=== PATIENT | female | born 1995 | race Caucasian/White ===

== ENCOUNTER 2021-06-07 13:36 | Outpatient (REF) | payer OTHER, SELFPAY ==
[2021-06-07 14:30] LABS: Influenza A PCR NEGATIVE (Negative); Influenza B PCR NEGATIVE (Negative); Resp Syncy Virus RNA Qual PCR NEGATIVE (Negative); SARS COV2 PCR INHOUSE POSITIVE (Negative)
== END 2021-06-07 13:37 | disposition home or self-care (01) ==
LOC: HO.LNP 13:36
PROVIDERS: Visit Provider Family Medicine
DX: Z20.822 Contact with and (suspected) exposure to COVID-19 (principal); B34.9 Viral infection, unspecified
CPT/HCPCS: 0241U